=== PATIENT | male | born 1950 | race Caucasian/White ===

== ENCOUNTER 2019-02-05 09:46 | Day surgery (SDC) | payer MEDICARE, OTHER ==
[~2019-02-05] VITALS: Ht 175.3 cm; Wt 78.8 kg
[2019-02-05 11:10] VITALS: Ht 175.3 cm; Wt 78.8 kg
[2019-02-05] MEDS ORDERED: ATORVASTATIN (11:16)
[2019-02-05] MEDS ORDERED: JENTADUETO (11:16)
[2019-02-05] MEDS ORDERED: FLOMAX (11:16)
[2019-02-05] MEDS ORDERED: LOSARTAN (11:16)
[2019-02-05] MEDS ORDERED: ASA 81 (11:16)
--- NOTE | 2019-02-05 11:28 | PREAC ---
Date/Time of Note Date/Time of Note DATE: 02/05/19 TIME: 11:26 Anesthesia Eval and Record Evaluation Time Pre-Procedure Interview DATE: 02/05/19 TIME: 11:26 Age 68 Sex male NPO: 8 hrs Preoperative diagnosis Colon screening Planned procedure Colonoscopy Past Medical History Past Medical History: Includes Cardio: HTN, Dyslipidemia Endo: Diabetes Renal: BPH Surgery & Anesthesia Issues No known issue Meds Anticoagulation: No Beta Teja within 24 hr: No Reason Beta Teja not given: Pt. not on B-Teja Reported Medications [Jentadueto] No Conflict Check 02/05/19 [Flomax] No Conflict Check 02/05/19 [Atorvastatin] No Conflict Check 02/05/19 [Losartan] No Conflict Check 02/05/19 [Asa 81] No Conflict Check 02/05/19 Meds reviewed: Yes Allergies Coded Allergies: No Known Allergy (Unverified , 02/05/19) Allergies Reviewed: Yes Labs/Studies Labs Reviewed: Reviewed by anesthesiologist test: N/A Pre-procedure Exam Airway: Adequate mouth opening Mallampati: Mallampati I Teeth: Normal Lung: Normal Heart: Normal ASA Physical Status ASA physical status: 2 Emergency: None Planned Anesthetic General/MAC: MAC Planned Pain Management Parenteral pain med Pre-operative Attestations Prior to commencing anesthesia and surgery, the patient was re-evaluated, there was verification of: *The patient's identity *The results of appropriate recent lab work and preoperative vital signs *The above evaluation not changing prior to induction *Anesthetic plan, risk benefits, alternative and complications discussed with patient/family; questions answered; patient/family understands, accepts and wishes to proceed. YASMINE HENSON MD Feb 05, 2019 11:28
[2019-02-05] MEDS ORDERED: PROPOFOL 20 ML ONE (11:39)
[2019-02-05 11:52] VITALS: BP 134/78; PULSE 78
--- NOTE | 2019-02-05 12:43 | PAC ---
Date/Time of Note Date/Time of Note DATE: 02/05/19 TIME: 12:42 Post-Anesthesia Notes Post-Anesthesia Note Last documented vital signs Vital Signs Date Temp Pulse Resp B/P (MAP) Pulse Ox O2 O2 Flow FiO2 Time Delivery Rate 02/05/19 98.2 78 134/78 99 Room Air 11:52 (96) Activity: WNL Respiratory function: WNL Cardiovascular function: WNL Mental status: Baseline Pain reasonably controlled: Yes Hydration appropriate: Yes Nausea/Vomiting absent: Yes Comments BT: 98.2, BP: 110/68, HR: 72, RR: 18, PULSE OX: 95 YASMINE HENSON MD Feb 05, 2019 12:43
[2019-02-05] MEDS ORDERED: FENTAnyl 50 MCG/ML VIAL IV PRN (13:00)
--- NOTE | 2019-02-05 15:09 | GILP ---
DATE OF PROCEDURE: 02/05/2019 NAME OF PROCEDURE: Colonoscopy. SURGEON: Laine Pierce MD PREOPERATIVE DIAGNOSES: 1. Change in bowel habit. 2. Screening colonoscopy. POSTOPERATIVE DIAGNOSES: 1. Colonoscopy all the way to the cecum. 2. Internal hemorrhoids. 3. No colon neoplasm was identified. INDICATION FOR THE PROCEDURE: Mr. Yazan Leger is a 68-year-old male patient who noticed a macias ge in the bowel habit. He needed screening colonoscopy. The procedure and possible complications are well explained to the patient. He understood and consen jaelyn to the procedure. DESCRIPTION OF PROCEDURE: Under the influence of anesthesia, the colonoscope was carefully introduce d in the rectum and under direct vision, it was advanced all the way to the cecum. FINDINGS: The patient had internal hemorrhoids. No colon neoplasm was identified. He tolerated the procedure very well and there was no complication from the procedure. At the end of the procedure, he was awake with stable vital signs and he was discharged home to the care of his [facility]. IMPRESSION: Please see postoperative diagnoses. PLAN: Next screening colonoscopy in 10 years. Dictated By: LAINE JOSE/CHUCKIE Conf#: [id number] DID#: [id number]
== END 2019-02-05 14:47 | disposition home or self-care (01) ==
LOC: GIL 09:46
PROVIDERS: ATTEND Internal Medicine Gastroenterology
DX: R19.4 Change in bowel habit (principal); K64.8 Other hemorrhoids; I10 Essential (primary) hypertension; E78.5 Hyperlipidemia, unspecified; E11.9 Type 2 diabetes mellitus without complications
CPT/HCPCS: 82962